=== PATIENT | male | born 1970 | race African-American/Black ===

== ENCOUNTER 2021-05-16 19:46 | Emergency (ER) | payer MEDICAID, SELFPAY ==
[2021-05-16 19:59] VITALS: BP 131/81; BP 142/82; PULSE 100; PULSE 80; RESP 16; TEMP 36.7; O2SAT 95
[2021-05-16 20:01] VITALS: BMI 39.9
--- NOTE | 2021-05-16 20:39 | ED.PSYCH ---
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 Patient never been to detox has therapist and psychiatrist not taking his medications feels lot of stress in life Related Data Allergies Allergy/AdvReac Type Severity Reaction Status Date / Time bee pollen [bee stings] Allergy Unknown Verified 05/16/21 20:26 shellfish derived Allergy Unknown Verified 05/16/21 20:26 Review of Systems Review of Systems: Yes all other systems are reviewed and are negative [facility] Social History Social History Alcohol intake: current Alcohol intake frequency: 3 or more drinks per day Alcohol type: hard liquor Patient Tobacco Use Status: Tobacco use Unknown Use of substances other than those prescribed or required for medical reasons: Unknown Advance Directives: No Advance Directives Information Provided: No Physical Exam Vital Signs: Vital Signs: Last Vital Signs Temp 97.9 F 05/16/21 23:45 Pulse 74 05/16/21 23:45 Resp 16 05/16/21 22:43 BP 161/99 H 05/16/21 23:45 Pulse Ox 99 05/16/21 23:45 Body Mass Index 39.9 Appearance: Alert. Oriented X3. No acute distress. Nontoxic Ob Eyes: PERRLA, No Nystagmus ENT: Pharynx normal. Oral Mucosa moist Neck: Normal inspection. Neck supple. CVS: Normal heart rate and rhythm. Pulses normal. Respiratory: No respiratory distress. Equal air entry bilateral, no wheezing/rales/rhonchi Abdomen: Soft and nontender. Bowel sounds are present, no mass palpable, no CVA tenderness Skin: Skin warm and dry. Normal skin color. Normal skin turgor. Extremities: No lower extremity edema. No calf tenderness Neuro: Oriented X 3. No motor deficit. No sensory deficit.No cerebellar signs , cranial nerves II-XII intact MDM - Psych MDM Narrative Medical decision making narrative: Patient with alcohol abuse with depression will consult crisis for evaluation for dual diagnosis Lab Data Attestation: I reviewed the patient's lab results. Result diagrams: 05/16/21 21:56 05/16/21 21:56 Labs: Lab Results 05/16/21 05/16/21 05/16/21 Range/Units 21:56 21:56 21:56 WBC 6.4 (4.8-10.8) X10*3/uL RBC 4.32 L (4.60-5.80) X10*6/uL Hgb 13.5 L (14.0-18.0) g/dl Hct 38.8 L (42-52) % MCV 89.8 (80-98) fL MCH 31.3 (27.0-33.0) pg MCHC 34.8 (31.0-36.0) g/dl RDW 14.4 (11.0-16.0) % Plt Count 247 (160-400) X10*3/uL MPV 8.9 L (9.4-12.4) fL Immature Gran % (Auto) 0.3 (0.0-0.4) % Neut % (Auto) 40.0 L (45-73) % Lymph % (Auto) 47.3 H (20-40) % [place] % (Auto) 8.6 (2-11) % Eos % (Auto) 3.3 (0-4) % Baso % (Auto) 0.5 (0-2) % Lymph # (Auto) 3.0 (1.2-4.9) X10*3/uL [place] # (Auto) 0.6 (0.1-1.2) X10*3/uL Eos # (Auto) 0.2 (0.0-0.4) X10*3/uL Baso # (Auto) 0.0 (0.0-0.2) X10*3/uL Abs Immat Gran (auto) 0.02 (0.00-0.03) X10*3/uL Absolute Neuts (auto) 2.6 (2.0-8.3) X10*3/uL Absolute Nucleated RBC 0.000 (0.0-0.012) X10*3/uL Nucleated RBC % (auto) 0.0 (0.0-0.2) /100WBC Sodium 142 (135-145) mmol/L Potassium 3.6 (3.3-5.1) mmol/L Chloride 106 (96-108) mmol/L Carbon Dioxide 24 (22-29) mmol/L Anion Gap 16 (12-20) BUN 17 H (9-16) mg/dL Creatinine 1.10 (0.5-1.4) mg/dL Estim Creat Clear Calc 118.7 Estimated GFR > 60 Random Glucose 100 (60-115) mg/dL Calcium 8.5 (8.4-10.2) mg/dL Magnesium 2.3 (1.6-2.6) mg/dL Total Bilirubin 0.3 (0.0-1.0) mg/dL AST 26 (5-37) U/L ALT 21 (0-40) U/L Alkaline Phosphatase 70 (39-117) U/L Total Protein 7.2 (6.5-8.0) g/dL Albumin 4.1 (3.5-5.0) g/dL Ethyl Alcohol 201 mg/dL COVID-19 ([facility]) (Negative) COVID-19 Clin Com 05/16/21 Range/Units 21:59 WBC (4.8-10.8) X10*3/uL RBC (4.60-5.80) X10*6/uL Hgb (14.0-18.0) g/dl Hct (42-52) % MCV (80-98) fL MCH (27.0-33.0) pg MCHC (31.0-36.0) g/dl RDW (11.0-16.0) % Plt Count (160-400) X10*3/uL MPV (9.4-12.4) fL Immature Gran % (Auto) (0.0-0.4) % Neut % (Auto) (45-73) % Lymph % (Auto) (20-40) % [place] % (Auto) (2-11) % Eos % (Auto) (0-4) % Baso % (Auto) (0-2) % Lymph # (Auto) (1.2-4.9) X10*3/uL [place] # (Auto) (0.1-1.2) X10*3/uL Eos # (Auto) (0.0-0.4) X10*3/uL Baso # (Auto) (0.0-0.2) X10*3/uL Abs Immat Gran (auto) (0.00-0.03) X10*3/uL Absolute Neuts (auto) (2.0-8.3) X10*3/uL Absolute Nucleated RBC (0.0-0.012) X10*3/uL Nucleated RBC % (auto) (0.0-0.2) /100WBC Sodium (135-145) mmol/L Potassium (3.3-5.1) mmol/L Chloride (96-108) mmol/L Carbon Dioxide (22-29) mmol/L Anion Gap (12-20) BUN (9-16) mg/dL Creatinine (0.5-1.4) mg/dL Estim Creat Clear Calc Estimated GFR Random Glucose (60-115) mg/dL Calcium (8.4-10.2) mg/dL Magnesium (1.6-2.6) mg/dL Total Bilirubin (0.0-1.0) mg/dL AST (5-37) U/L ALT (0-40) U/L Alkaline Phosphatase (39-117) U/L Total Protein (6.5-8.0) g/dL Albumin (3.5-5.0) g/dL Ethyl Alcohol mg/dL COVID-19 ([facility]) Negative (Negative) COVID-19 Clin Com See Note Discharge Plan Discharge Clinical Impression: Alcohol abuse Depression Qualifiers: Depression Type: major depressive disorder Major depression recurrence: recurrent Active/Remission status: currently active Major depression episode severity: severe Psychotic features: without psychotic features Qualified Code(s): F33.2 - Major depressive disorder, recurrent severe without psychotic features
--- NOTE | 2021-05-16 21:25 | PC.NURSE ---
pt a&o, no sob or chest pain. pt reports drinking daily due to being depressed. pt reports drinking regularly due to depression. report to self harm by wanting to drinking self to . pt is tire changer. belonging in the pod. Pt sleeping at this time.
[2021-05-16 22:04] LABS: MANUAL DIFF FLAG NO
[2021-05-16 22:05] LABS: Basophils Percent Auto 0.5 % (0-2); Eosinophils Absolute Auto 0.2 X10*3/uL (0.0-0.4); Eosinophils Percent Auto 3.3 % (0-4); Hematocrit 38.8 % (42-52); Hemoglobin 13.5 g/dl (14.0-18.0); Imm Gran Abs Auto 0.02 X10*3/uL (0.00-0.03); Imm Gran Pct Auto 0.3 % (0.0-0.4); Lymphocytes Percent Auto 47.3 % (20-40); Mean Corpuscular HGB Conc 34.8 g/dl (31.0-36.0); Mean Corpuscular Hemoglobin 31.3 pg (27.0-33.0); Mean Corpuscular Volume 89.8 fL (80-98); Mean Platelet Volume 8.9 fL (9.4-12.4); Monocytes Absolute Auto 0.6 X10*3/uL (0.1-1.2); Monocytes Percent Auto 8.6 % (2-11); Neutrophils Absolute Auto 2.6 X10*3/uL (2.0-8.3); Platelet Count 247 X10*3/uL (160-400); Red Blood Count 4.32 X10*6/uL (4.60-5.80); Red Cell Distribution Width 14.4 % (11.0-16.0); White Blood Count 6.4 X10*3/uL (4.8-10.8)
[2021-05-16 22:17] LABS: COVID-19 Test Negative (Negative); IDNOW Serial# 9DD0AD1C
[2021-05-16 22:20] LABS: Alanine Aminotransferase 21 U/L (0-40); Albumin Level 4.1 g/dL (3.5-5.0); Alkaline Phosphatase 70 U/L (39-117); Anion Gap 16 (12-20); Aspartate Amino Transferase 26 U/L (5-37); Bilirubin Total 0.3 mg/dL (0.0-1.0); Blood Urea Nitrogen 17 mg/dL (9-16); Calcium 8.5 mg/dL (8.4-10.2); Carbon Dioxide 24 mmol/L (22-29); Chloride 106 mmol/L (96-108); Creatinine Clr Calc Pharmacy 118.7; Estimated Glomerular Filt Rate > 60; Glucose Random 100 mg/dL (60-115); Magnesium 2.3 mg/dL (1.6-2.6); Potassium 3.6 mmol/L (3.3-5.1); Sodium 142 mmol/L (135-145); Total Protein 7.2 g/dL (6.5-8.0)
[2021-05-16 22:43] VITALS: RESP 16
[2021-05-16 23:45] VITALS: BP 161/99; PULSE 74; TEMP 36.6; O2SAT 99
[2021-05-17 01:05] LABS: Ethanol 201 mg/dL
--- NOTE | 2021-05-17 01:19 | PC.NURSE ---
pt is sleeping at this time, awaiting for pt wake up for a proper evaluation.
[2021-05-17 02:00] VITALS: BP 160/72; PULSE 82; RESP 16; TEMP 36.1; O2SAT 99
--- NOTE | 2021-05-17 03:47 | PC.NURSE ---
pt is sleeping at this time.
--- NOTE | 2021-05-17 05:47 | PC.NURSE ---
Patient just got transferred from main ED, alert and oriented x4, calm and quiet, no distress observed/reported, VSS, [facility] referral completed/confirmed, patient will be seen in the morning, med rec completed/pending provider's approval, will continue to monitor.
[2021-05-17 05:50] VITALS: BP 133/82; PULSE 78; RESP 16; TEMP 36.4; O2SAT 98
[2021-05-17 06:09] LABS: Amphetamine Screen Urine Not Detected (Not Detect); Barbiturates, Urine Not Detected (Not Detect); Benzodiazepines Screen Urine Not Detected (Not Detect); Cannabinoid Screen Urine Not Detected (Not Detect); Cocaine Screen Urine Not Detected (Not Detect); Fentanyl, urine Not Detected (Not Detect); Opiate Screen Urine Not Detected (Not Detect); Phencyclidine Screen Urine Not Detected (Not Detect)
--- NOTE | 2021-05-17 08:14 | PC.NURSE ---
Pt ambulatory to BR. Denies SI at this time. States I was just really drunk last night. It had been years since I felt suicidal . Ambulating with steady gait to BR. No tremors. No diaphoresis.
[2021-05-17 09:11] VITALS: BP 162/100; PULSE 92; RESP 18; TEMP 37.4; O2SAT 96
[2021-05-17 09:17] VITALS: BP 162/100; PULSE 92
[2021-05-17] MEDS: hydroCHLOROthiazide 25 MG TABLET PO (09:17)
[2021-05-17] MEDS: Metoprolol Tartrate 50 MG TABLET 100 MG PO (09:17)
[2021-05-17] MEDS: amLODIPine Besylate 5 MG TABLET PO (09:17)
[2021-05-17] MEDS: Multivitamin TABLET 1 TAB PO (09:18)
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
--- NOTE | 2021-05-17 11:26 | PC.NURSE ---
[facility] new vehicle sales consultant present to speak with patient. Pt has been calm and resting in room.
--- NOTE | 2021-05-17 14:01 | PC.NURSE ---
Pt is confused as to why he is being brought to the Living Room. This RN calling N to have Bethany assist in explaining plan.
[2021-05-17 14:14] VITALS: BP 167/108; PULSE 66; RESP 19; O2SAT 99
== END 2021-05-17 14:40 | disposition home or self-care (01) ==
PROVIDERS: Emergency Provider Internal Medicine; PCP Internal Medicine
DX: F10.10 Alcohol abuse, uncomplicated (principal); Y90.7 Blood alcohol level of 200-239 mg/100 ml; F33.2 Major depressive disorder, recurrent severe without psychotic features; Z91.14 Patient's other noncompliance with medication regimen; Z20.822 Contact with and (suspected) exposure to COVID-19
CPT/HCPCS: 36415; 80053; 80307; 82077; 83735; 85025; 87635; 99285